=== PATIENT | male | born 1940 | race Caucasian/White ===

== ENCOUNTER → 2016-04-07 | Outpatient (CLI) | payer MEDICARE ==
[2015-09-19 11:00] VITALS: BP 121/69
[~2016-04-07] MED LIST: ACET325T9 PO; ALLO300T PO; ASPI81TA2 PO; CICL34.6 TP; CYAN10002 IM; DOCU-27 PO; FLUT16SP NS; GABA-585 PO; HYDR-2679 PO; HYDR-2762 PO; HYDR25TA9 PO; IBUP-1027 PO; IOHEXOL 180 MG/ML 10 ML VIAL. ONE; LOSA50TA6 PO; POLY17PO5 PO; SENN1TAB70 PO; TAMS0.4C2 PO; TRIA15CR TP; WARF2TAB7 PO; WARF5TAB7 PO; [UNRECOGNIZED DRUG - CODE] OP; methylPREDNISolone ACETATE 40 MG/ML VIAL. ONE; methylPREDNISolone ACETATE 80 MG/ML VIAL. ONE
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
== END | disposition home or self-care (01) ==
LOC: PNCL 13:13
PROVIDERS: ATTEND Anesthesiology
DX: M54.16 Radiculopathy, lumbar region (principal); I10 Essential (primary) hypertension; N40.0 Benign prostatic hyperplasia without lower urinary tract symptoms; M48.06 Spinal stenosis, lumbar region; M96.1 Postlaminectomy syndrome, not elsewhere classified; Z90.49 Acquired absence of other specified parts of digestive tract; N28.9 Disorder of kidney and ureter, unspecified; M19.90 Unspecified osteoarthritis, unspecified site; M10.9 Gout, unspecified
CPT/HCPCS: 62323; J1030; J1040; 62311

== ENCOUNTER → 2016-09-21 | Outpatient (CLI) | payer MEDICARE ==
[2015-09-19 11:00] VITALS: BP 121/69
[~2016-09-21] MED LIST changes: +ASPI-630 PO; -ASPI81TA2 PO; +BUPIVACAINE MPF 0.25% 10 ML VIAL. ONE; +DIVA500T9 PO; +DOCU-109 PO; -DOCU-27 PO; -IOHEXOL 180 MG/ML 10 ML VIAL. ONE; +LOSA25TA4 PO; +POLY17PO29 PO; -POLY17PO5 PO
--- NOTE | 2016-09-22 06:46 | PAIN ---
DATE OF SERVICE: 09/21/2016 PROGRESS NOTE FOR PAIN CLINIC DIAGNOSES: Lumbar radiculopathy with lumbar spondylosis, stenosis and post-lumbar laminectomy syndrome. HISTORY OF PRESENT ILLNESS: The patient is a 76-year-old male who returns for followup status post caudal approach epidural steroid injection. The patient was last seen on 04/07/2016. The patient reports that he did well for a few weeks, but the pain returned fairly significantly in his low back and right lower extremity. The patient reports now the pain is essentially just on the right side of the low back. He was recently seen by his neurosurgeon, who is concerned about some facet syndrome pain in the low back as he has had previous extensive lumbar surgery and fusion at L4 and above. The patient reports the pain is a 10 on a scale of 10, it is worse, it is generally about a 7 on a scale of 10 and is currently a 4 on a scale of 10 today. The patient reports it is sharp, stabbing, severe when on the right side of the ____ affecting his ability to walk. The patient reports it is better with sitting or lying down, much worse when he is on his feet or standing. The patient is looking for a swimming pool that he is able to do some aerobic exercises, but has not found one yet, but is planning to find one ____ center. The patient reports his pain is better at night if he is lying down. He is sleeping well, does not awaken him from sleep. PHYSICAL EXAMINATION: VITAL SIGNS: Today, the patient's blood pressure is 134/68, pulse is ____, respirations 18, temperature 98.0 degrees Fahrenheit. Height is 6 feet 1 inch, weight is 263 pounds. GENERAL: The patient is awake, alert, oriented, appropriate, very pleasant demeanor. HEENT: Head shows normocephalic, atraumatic. Extraocular movements are intact and symmetrical. Oral cavity shows mucous membranes moist and pink. Dentition is intact. NECK: Shows anterior throat supple without palpable lymphadenopathy noted. Swallow reflex is symmetrical. CHEST: Shows normal on inspection. Breath sounds are clear to auscultation bilaterally. HEART: Shows S1 and S2 clear. ABDOMEN: Soft, nontender, nondistended. No palpable organomegaly is noted. No rebound or guarding demonstrated. BACK: Shows spine grossly in the midline. Slight exaggeration of thoracic kyphosis and flattening of lumbar lordotic curvature, has well-healed extensive surgical scarring noted in the lumbar distribution. Lumbar paraspinous muscle shows symmetrical on inspection with palpation is firm and moderately tender throughout the inferior and middle aspect of the paraspinous muscles diffusely, significant tenderness with deep palpation just right of midline. No lower lumbar distribution on the right side, moderate tenderness with palpation on the left side. The patient shows good rotational motion, but with extension shows extensive pain in the low back on the right side, better with forward flexion. Right and left lateral rotation shows mild tenderness each way. EXTREMITIES: Lower extremities showed deep tendon reflexes 1+ in the patellar and tendo calcaneus tendons. Motor exam is strong with 5/5 dorsiflexion, extension and equal. Options were discussed with the patient and the patient's old chart was reviewed as his current medication regimen updated. Current review of systems updated today as well. We will proceed with bilateral L5-S1 facet joint injections with fluoroscopic guidance today. Risks were again discussed including, but not limited to bleeding, infection, possibility of epidural hematoma and subsequent neurological compromise, dural punctures, headaches, spinal cord and/or nerve damage, side effects of steroid medications and exposure to fluoroscopy as well as poor results regarding pain control. The patient understands and wishes to proceed. The patient will return to the clinic in approximately 2 weeks for followup, was counseled on return appointment, activity level and side effects to be aware of. DIAGNOSES: Lumbar spinal stenosis with spondylosis and post-lumbar laminectomy syndrome. PROCEDURE: Lumbar facet joint injections at L5-S1 bilaterally with C-arm fluoroscopic guidance under sterile prep and drape using local anesthetic. MEDICATIONS INJECTED: A total of 80 mg Depo-Medrol, 40 mg per side, a total of 1 mL of Isovue for contrast, a total of 2 mL of 0.25% bupivacaine, 1 mL per facet joint. CONDITION AT DISCHARGE: Stable. The patient tolerated the procedure well, had no complications. RADHA MCCLELLAN MD DR: DANIA/domniique JOB#: [id number] / [id number]
== END | disposition home or self-care (01) ==
LOC: PNCL 13:31
PROVIDERS: ATTEND Anesthesiology
DX: M48.06 Spinal stenosis, lumbar region (principal); M47.816 Spondylosis without myelopathy or radiculopathy, lumbar region; M96.1 Postlaminectomy syndrome, not elsewhere classified; I25.10 Atherosclerotic heart disease of native coronary artery without angina pectoris; I12.9 Hypertensive chronic kidney disease with stage 1 through stage 4 chronic kidney disease, or unspecified chronic kidney disease; N18.9 Chronic kidney disease, unspecified; Z90.49 Acquired absence of other specified parts of digestive tract; Z86.69 Personal history of other diseases of the nervous system and sense organs; Z87.442 Personal history of urinary calculi; Z87.39 Personal history of other diseases of the musculoskeletal system and connective tissue
CPT/HCPCS: 64493; J1040; J3490; J1030

== ENCOUNTER → 2016-10-13 | Outpatient (CLI) | payer MEDICARE ==
[2015-09-19 11:00] VITALS: BP 121/69
[~2016-10-13] MED LIST changes: +IOHEXOL 180 MG/ML 10 ML VIAL. ONE
== END | disposition home or self-care (01) ==
LOC: PNCL 10:30
PROVIDERS: ATTEND Anesthesiology
DX: M47.26 Other spondylosis with radiculopathy, lumbar region (principal); M48.01 Spinal stenosis, occipito-atlanto-axial region; I13.0 Hypertensive heart and chronic kidney disease with heart failure and stage 1 through stage 4 chronic kidney disease, or unspecified chronic kidney disease; N18.9 Chronic kidney disease, unspecified; I50.9 Heart failure, unspecified; Z90.49 Acquired absence of other specified parts of digestive tract; Z86.69 Personal history of other diseases of the nervous system and sense organs; Z88.6 Allergy status to analgesic agent; Z88.7 Allergy status to serum and vaccine; Z91.048 Other nonmedicinal substance allergy status
CPT/HCPCS: 64493; J1030; J1040; J3490; 64494

== ENCOUNTER → 2016-10-27 | Outpatient (CLI) | payer MEDICARE ==
[2015-09-19 11:00] VITALS: BP 121/69
[~2016-10-27] MED LIST changes: -BUPIVACAINE MPF 0.25% 10 ML VIAL. ONE; -IOHEXOL 180 MG/ML 10 ML VIAL. ONE; -methylPREDNISolone ACETATE 40 MG/ML VIAL. ONE; -methylPREDNISolone ACETATE 80 MG/ML VIAL. ONE
--- NOTE | 2016-10-28 06:45 | PAIN ---
DATE OF SERVICE: 10/27/2016 PROGRESS NOTE FOR PAIN CLINIC DIAGNOSES: Lumbar radiculopathy with lumbar spinal stenosis and spondylosis with post-lumbar laminectomy syndrome. HISTORY OF PRESENT ILLNESS: The patient is a 76-year-old male who returns for followup status post lumbar facet joint injections at L5-S1 bilaterally. The patient reports initially sore, but then about 75% improvement over the first 4 days following the injections. The patient reports that the pain returned after those 4 days to about a 7 on a scale of 10, currently a 5 on a scale of 10 right now. Worse with standing, walking and bending, flexing and extension especially, worse with activities. The patient has been doing hydrotherapy at the local pool 3 times a week. The patient does report it helps to some extent and feels much better in the pool than out of it, but reports it still awakens him from sleep at night as well. The patient has to reposition or change in position to get out of bed, stand, walk and stretch, then he is able to get back to sleep. The patient reports the pain is stabbing, aching, dull, sharp. It is off and on. It is not constant now, but is much better after the second set of lumbar facet injections. The patient reports no new motor or sensory deficits, no new bowel or bladder incontinence or other complaints. No significant radiation into the lower extremities at this time, just localized to the back itself, again worse on the right than the left currently. PHYSICAL EXAMINATION: VITAL SIGNS: The patient's blood pressure is 129/60, pulse 64, respirations 18, temperature 98.2 degrees Fahrenheit, height 6 feet 1 inch, weight is 260 pounds. GENERAL: The patient is awake, alert, oriented, appropriate, very pleasant demeanor. HEENT: Head is normocephalic, atraumatic. Extraocular movements are intact, symmetrical. Oral cavity, mucous membranes moist and pink. Dentition is intact. NECK: Shows anterior throat is supple. Swallow reflex is symmetrical. Neck shows full rotational motion of cervical spine without tenderness or difficulty. CHEST: Shows normal on inspection. Breath sounds are clear to auscultation bilaterally. HEART: Shows S1 and S2 clear. ABDOMEN: Soft, nontender, nondistended. No palpable organomegaly, no rebound or guarding demonstrated. Obese, but without rebound or guarding. BACK: Shows spine grossly midline. Well healed surgical scars noted in the lumbar distribution and some flattening of lumbar lordotic curvature. Lumbar paraspinous muscle shows some mild tenderness with palpation, but only diffusely. No tenderness over the sacrum or sacroiliac regions. With rotation, the patient does show increased pain in the right low back as well as with extension bilaterally in the low back, but is better with forward flexion. LOWER EXTREMITIES: Show deep tendon reflexes 1+ in the patellar and tendo calcaneus tendons. Motor exam is strong with 5/5 dorsiflexion and extension. Peripheral pulses are 1+. No peripheral edema is noted bilaterally. Options were discussed with the patient and the patient's old chart was reviewed as his current medication regimen updated. Current review of systems updated today as well. We will preauthorize the patient for radiofrequency ablation, as he has had 2 lumbar facet injections with good results each time with initially about 50% improvement and 75% improvement for about 4 days following the injections. He would like to proceed with moving on more to the radiofrequency. We described this in great detail today. We will wait for preauthorization and have the patient return for radiofrequency ablation of the L4-L5 and L5-S1 levels bilaterally. RADHA MCCLELLAN MD DR: DANIA/dominique JOB#: [id number] / [id number]
== END | disposition home or self-care (01) ==
LOC: PNCL 09:56
PROVIDERS: ATTEND Anesthesiology
DX: M54.16 Radiculopathy, lumbar region (principal); M47.896 Other spondylosis, lumbar region; M48.06 Spinal stenosis, lumbar region; M96.1 Postlaminectomy syndrome, not elsewhere classified
CPT/HCPCS: G0463

== ENCOUNTER → 2016-11-18 | Outpatient (CLI) | payer MEDICARE ==
[2015-09-19 11:00] VITALS: BP 121/69
[~2016-11-18] MED LIST changes: +BUPIVACAINE MPF 0.25% 10 ML VIAL. ONE; +LIDOCAINE 1% PF 2 ML VIAL. ONE; +LIDOCAINE 2% PF Vial for OR 5 ML VIAL. ONE; +methylPREDNISolone ACETATE 40 MG/ML VIAL. ONE; +methylPREDNISolone ACETATE 80 MG/ML VIAL. ONE
--- NOTE | 2016-11-18 13:39 | PAIN ---
DATE OF SERVICE: 11/18/2016 PROGRESS NOTE FOR PAIN CLINIC DIAGNOSES: Lumbar radiculopathy with lumbar spinal stenosis, spondylosis and post-lumbar laminectomy syndrome. HISTORY OF PRESENT ILLNESS: The patient is a 76-year-old male who returns for followup status post lumbar facet joint injections with very good results, about 75% improvement with each injection, again had this last on 10/13/2016 and prior to that since 09/21/2016 with good consistent results after each injection with pain returning however. The patient reports now significant pain across the low back, slightly worse on the right than the left, but present bilaterally, rates at 10 on scale of 10, it is worse, 5 at least, is averaging about 8 recently. The patient reports stabbing, aching, sharp with some dull pain as well, worse with rotation, extension, weightbearing. He is doing some pool therapy, which helps as well, but only when he is again in the water. The patient reports no new motor or sensory deficits. The patient reports the pain does increase, difficulty to sleep, he is only sleeping 4-6 hours. He is to reposition or take pain medication, get out of bed and then he is able to get back to sleep. The patient reports no new bowel or bladder incontinence or other complaints. PHYSICAL EXAMINATION: VITAL SIGNS: The patient's blood pressure 130/66, pulse 72, respirations 18, temperature 97.9 degrees Fahrenheit, height is 6 feet 1 inch, weight is 268 pounds. GENERAL: The patient is awake, alert, oriented, appropriate, very pleasant demeanor. HEENT: Head shows normocephalic, atraumatic. Extraocular movements are intact, symmetrical. Oral cavity: Mucous membranes moist and pink. NECK: Shows anterior throat supple without palpable lymphadenopathy noted. Swallow reflex is symmetrical. CHEST: Shows normal on inspection. Breath sounds are clear to auscultation bilaterally. HEART: Shows S1 and S2 clear. No murmurs auscultated. ABDOMEN: Obese, soft, nontender, nondistended. No palpable organomegaly. No rebound or guarding demonstrated. BACK: Shows spine grossly midline. Lumbar flattening of the lumbar curvatures noted with multiple well-healed surgical scars. There is moderate tenderness to palpation in the middle and lower distribution of paraspinous muscles, but only diffusely. No tenderness over the sacrum or sacroiliac regions. The patient shows tenderness with extension as well as right and left lateral rotation slightly more painful, reported out towards the right lateral rotation greater than 10 degrees, but also painful left rotation of 10 degrees, forward flexion is improved with decreased pain at 45 degrees. EXTREMITIES: Lower extremities showed deep tendon reflexes 1+ in the patellar and tendocalcaneus tendons are equal. Motor exam is strong with 5/5 dorsiflexion, extension, quadriceps and hamstring flexion. Peripheral pulses are 1+ bilaterally in the posterior tibial distribution. Options were discussed with the patient and the patient's old chart was reviewed as his current medication regimen and updated. Current review of systems updated today as well. We will proceed with radiofrequency ablation of the L4-L5 and L5-S1 levels bilaterally. Risks were again discussed including, but not limited to bleeding, infection, possibility of epidural hematoma, subsequent neurologic compromise, dural punctures, headaches, spinal cord and/or nerve damage, side effects of steroid medication and poor results regarding pain control. The patient understands and wishes to proceed. The patient will return to clinic in approximately 2 weeks for followup, was counseled on return appointment, activity level and side effects to be aware of. The patient will increase his activity as tolerated as well. Continue pool therapy. The patient was cautioned as he had increased soreness after radiofrequency ablation, may be present for about a week or so, may be more and the patient understands and will continue with physical therapy as directed. DIAGNOSES: Lumbar spondylosis lumbar and lumbosacral. PROCEDURES: Radiofrequency ablation, bilateral L4-L5 and L5-S1 levels using C-arm fluoroscopic guidance under sterile prep and drape using local anesthetic. MEDICATIONS INJECTED: A total of 6 mL of 0.25% bupivacaine at 1 mL at each level prior to or after radiofrequency ablation with a total 120 mg Depo-Medrol within the bupivacaine also a total of 6 mL of 2.0% lidocaine after motor, sensory testing but prior to radiofrequency ablation at each level, 1 mL at each level as well after negative aspiration also. Please see radiofrequency flow sheet for impedances, levels, time of duration as well as temperatures. CONDITION AT DISCHARGE: Stable. The patient tolerated the procedure well, had no complications. RADHA MCCLELLAN MD DR: DANIA/dominique JOB#: [id number] / [id number]
== END | disposition home or self-care (01) ==
LOC: PNCL 10:02
PROVIDERS: ATTEND Anesthesiology
DX: M47.27 Other spondylosis with radiculopathy, lumbosacral region (principal); M48.06 Spinal stenosis, lumbar region; M96.1 Postlaminectomy syndrome, not elsewhere classified; Z86.69 Personal history of other diseases of the nervous system and sense organs; I25.10 Atherosclerotic heart disease of native coronary artery without angina pectoris; I10 Essential (primary) hypertension; Z90.49 Acquired absence of other specified parts of digestive tract; Z87.442 Personal history of urinary calculi; Z88.6 Allergy status to analgesic agent; Z88.7 Allergy status to serum and vaccine; Z91.048 Other nonmedicinal substance allergy status
CPT/HCPCS: 64635; 64636; J1030; J1040; J3490; J2001

== ENCOUNTER → 2016-12-14 | Outpatient (CLI) | payer MEDICARE ==
[2015-09-19 11:00] VITALS: BP 121/69
[~2016-12-14] MED LIST changes: -BUPIVACAINE MPF 0.25% 10 ML VIAL. ONE; -LIDOCAINE 1% PF 2 ML VIAL. ONE; -LIDOCAINE 2% PF Vial for OR 5 ML VIAL. ONE; -methylPREDNISolone ACETATE 40 MG/ML VIAL. ONE; -methylPREDNISolone ACETATE 80 MG/ML VIAL. ONE
--- NOTE | 2016-12-14 23:10 | PAIN ---
DATE OF SERVICE: 12/14/2016 DIAGNOSES: Lumbar radiculopathy with lumbar spinal stenosis and spondylosis and post-lumbar laminectomy syndrome. HISTORY OF PRESENT ILLNESS: The patient is a 76-year-old male who returns for followup status post facet joint injections and radiofrequency ablation on 11/08/2016. The patient reports about 40% improvement overall in the low back pain, still with pain across the low back, right and left, essentially equal, but improved. The patient reports much better when he is in the pool, doing water therapy, also hot tub therapy, but worse with walking and standing. The patient reports this worse in the morning as well, rate as a 9 on a scale of 10 at its worse, 6 on average and a 3 on a scale of 10 currently. The patient reports it is burning, stabbing, sharp, aching on and off in intensity, but much better with lying down or sitting down in the low back itself. The patient reports it does not awake him up from sleep at night. He sleeps well through the night, about 8 hours. The patient reports no new motor or sensory deficits, no new bowel or bladder incontinence or other complaints. PHYSICAL EXAMINATION: VITAL SIGNS: The patient's blood pressure is 145/81, pulse 67, respirations 16, temperature is 98.2 degrees Fahrenheit, height 6 feet 1 inch, weight is 267 pounds. GENERAL: The patient is awake, alert, oriented, appropriate. He is a very pleasant demeanor. HEENT: Head shows normocephalic, atraumatic. Extraocular movements are intact and symmetrical. Oral cavity shows mucous membranes moist and pink. Dentition is intact. NECK: Shows anterior throat supple without palpable lymphadenopathy noted. Swallow reflex is symmetrical. CHEST: Shows normal on inspection. Breath sounds are clear to auscultation bilaterally. HEART: Shows S1 and S2 clear. ABDOMEN: Soft, nontender, nondistended. No palpable organomegaly is noted. No rebound or guarding demonstrated. BACK: Shows spine grossly in the midline. Lumbar paraspinous musculature shows some moderate tenderness to palpation. Well-healed surgical scars again noted. With palpation shows tenderness diffusely in the lower lumbar distribution bilaterally. No tenderness over the sacrum or sacroiliac regions. The patient shows good rotation and motion of the lumbar spine, both laterally as well as extension and flexion with some minor pain with extension only. EXTREMITIES: Lower extremities showed deep tendon reflexes 1+ in the patellar and tendo- calcaneus tendons. Motor exam is strong with 5/5 dorsiflexion, extension, quadriceps and hamstring flexion. Options were discussed with the patient and the patient's old chart was reviewed as his current medication regimen updated. Current review of systems updated today as well. We will hold on further procedures at this time. We discussed maintaining water therapy and aerobic therapy, also discussed anti-inflammatory medications. 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 If approved with his circus roustabout, we will start this as he has had very good success with these in the past and is currently only taking Tylenol. The patient will discuss this with his circus roustabout and will have a follow up on an as-needed basis at this time. RADHA MCCLELLAN MD DR: DANIA/dominique JOB#: [id number] / [id number]
== END | disposition home or self-care (01) ==
LOC: PNCL 10:05
PROVIDERS: ATTEND Anesthesiology
DX: M48.06 Spinal stenosis, lumbar region (principal); M54.16 Radiculopathy, lumbar region; M47.896 Other spondylosis, lumbar region
CPT/HCPCS: G0463